=== PATIENT | female | born 1940 | race Caucasian/White ===

== ENCOUNTER 2023-07-05 14:20 | Emergency (ER) | payer OTHER ==
[2023-07-05 14:47] VITALS: BP 157/67; PULSE 82; RESP 18; TEMP 98; BMI 24.2
[2023-07-05] MEDS ORDERED: ACETAMINOPHEN 500 MG TABLET (FP) PO ONE (16:18)
[2023-07-05] MEDS ORDERED: ACETAMINOPHEN 500 MG TABLET (FP) ONE (16:21)
== END 2023-07-05 19:22 | disposition home or self-care (01) ==
LOC: JERFT 14:20
DX: M79.604 Pain in right leg (principal); M71.21 Synovial cyst of popliteal space [Baker], right knee
CPT/HCPCS: 93971-TC; 99284-25